=== PATIENT | female | born 1985 | race Caucasian/White ===

== ENCOUNTER 2020-06-21 15:16 | Emergency (ER) | payer OTHER, MEDICAID, SELFPAY ==
[2020-06-21 15:17] VITALS: BP 132/92; PULSE 93; RESP 16; TEMP 36.7; O2SAT 97; BMI 17.4
--- NOTE | 2020-06-21 15:37 | ED_ITS ---
HPI - Extremity Injury (Upper) <LAZARO Rossi - Last Filed: 06/21/20 15:59> General Chief Complaint: Extremity Injury, Upper Stated Complaint: LEFT ARM NUMBNESS Time Seen by Provider: 06/21/20 15:21 Source: patient and family Mode of arrival: Ambulatory Limitations: no limitations History of Present Illness HPI narrative: 35yo female with a history of asthma, EDS, narcolepsy, POTs, recently started taking any medication for sleep/nacolepsy called Xywav (calcium, mag, potassium, and sodium solution) presents to the emergency department complaining 1 episode of left arm tingling. She states she took Xywav this evening and when she woke up this morning she felt a slight tingling in her left arm. She was lying on her right side which she thought was odd. She states the numbness and tingling felt like pins and needles. She states that lasted a few minutes and resolved after she moves her arm. She also noticed that she was slightly short of breath, she has a history of asthma, she states it felt like chest tightness which happens on occasion when she has an increase in her asthma symptoms. She states this feels very similar. However, she has not filled her new inhaler levabluterol at this point. She has not taken albuterol because it makes her heart rate increased. She is able to walk around the room in from the car without any shortness of breath or distress. Patient denies any other symptoms such as fevers, chills, vomiting, diarrhea, chest pain, dizziness, abdominal pain, or any other concerns. Related Data Allergies Allergy/AdvReac Type Severity Reaction Status Date / Time ciprofloxacin [From Cipro] Allergy Verified 06/21/20 15:24 Penicillins Allergy Verified 06/21/20 15:24 Review of Systems <LAZARO Rossi - Last Filed: 06/21/20 15:59> Review of Systems Narrative: REVIEW OF SYSTEMS: GENERAL: Denies fever or chills. HENT: No head trauma. CARDIOVASCULAR: No chest pain or syncope. RESPIRATORY: No cough. Does report some chest tightness, see HPI. GASTROINTESTINAL: No nausea or vomiting. GENITOURINARY: No flank pain. MUSCULOSKELETAL: No pain. INTEGUMENTARY: No rash. NEURO: Reports 1 episode of numbness and tingling in left arm, see HPI. Patient History <LAZARO Rossi - Last Filed: 06/21/20 15:59> Medical History Asthma EDS (Cee-Danlos syndrome) Social History Smoking Status: Never smoker Smoking Status: Never smoker alcohol intake frequency: other Substance Use Type: does not use Exam <LAZARO Rossi - Last Filed: 06/21/20 15:59> Initial Vital Signs Initial Vital Signs: Vital Signs Temperature 98.1 F 06/21/20 15:17 Pulse Rate 93 H 06/21/20 15:17 Respiratory Rate 16 06/21/20 15:17 Blood Pressure 132/92 H 06/21/20 15:17 Pulse Oximetry 97 06/21/20 15:17 PHYSICAL EXAMINATION: GENERAL: Well groomed, alert, and cooperative. Answers questions promptly and appropriately. HENT: Normocephalic. Ear canals patent. Oral mucosa is pink and moist. EYES: PERRLA, EOMIs, conjunctiva pink, sclera white, no periorbital swelling. NECK: Full ROM, no midline or spinal tenderness. CARDIOVASCULAR: S1 and S2 sounds normal. Regular rate and rhythm, no murmurs, clicks, or bruits. RESPIRATORY: Normal respiratory rate, trachea midline, airway patent. No stridor, nasal flaring or accessory muscle use. Lungs are clear in all griffin without wheeze, rhonchi, or crackles. MUSCULOSKELETAL: Equal accounting support specialist, deltoid, and forearm strength bilaterally. Normal gait and coordination. Equal tone and mass bilaterally. Equal strength bilaterally to upper and lower extremities. No spinal tenderness. EXTREMITIES: CMS intact. Moves all extremities. SKIN: Warm, dry, soft, appropriate color for ethnicity. No lesions, rashes, or wounds to visualized areas. NEURO: Alert and Oriented X 3. GCS: 15. Good coordination. No ataxia, or sensory deficits, or cognitive issues. Cranial Nerves: II: Visual griffin grossly intact. III & IV & : EOMIs V: Able to open and close jaw. VII: Facial movements symetrical. Able to close eyelids tightly. VIII: Hearing grossly intact, adequate balance. X: Uvula pronation intact. XI: Patient is able to shrug shoulders. XII: Patient is able to stick out tongue and move it side to side. PSYCH: Appropriate affect and mood. <Dylon Marsh DO - Last Filed: 06/21/20 17:16> Initial Vital Signs Initial Vital Signs: Vital Signs Temperature 98.1 F 06/21/20 15:17 Pulse Rate 93 H 06/21/20 15:17 Respiratory Rate 16 06/21/20 15:17 Blood Pressure 132/92 H 06/21/20 15:17 Pulse Oximetry 97 06/21/20 15:17 Course <LAZRAO Rossi - Last Filed: 06/21/20 15:59> Orders Ordered: ED Orders 06/21/20 15:45 Complete Blood Count AUTO DIFF Stat Comprehensive Metabolic Panel Stat Vital Signs Vital signs: Vital Signs - 8 hr 06/21/20 15:17 06/21/20 17:08 Temperature 98.1 F Pulse Rate 93 H 89 Respiratory Rate 16 16 Blood Pressure 132/92 H 128/88 Pulse Oximetry 97 97 <Dylon Marsh DO - Last Filed: 06/21/20 17:16> Orders Ordered: ED Orders 06/21/20 15:45 Complete Blood Count AUTO DIFF Stat Comprehensive Metabolic Panel Stat Vital Signs Vital signs: Vital Signs - 8 hr 06/21/20 15:17 06/21/20 17:08 Temperature 98.1 F Pulse Rate 93 H 89 Respiratory Rate 16 16 Blood Pressure 132/92 H 128/88 Pulse Oximetry 97 97 MDM - Extremity Injury (Upper) <LAZARO Rossi - Last Filed: 06/21/20 15:59> Medical Records Attestation: I reviewed the patient's medical records. Lab Data Attestation: I reviewed the patient's lab results. Result diagrams: 06/21/20 15:45 06/21/20 15:45 Labs: Lab Results 06/21/20 06/21/20 Range/Units 15:45 15:45 WBC 10.2 (4.5-11.0) X10^3/uL RBC 4.81 (4.0-5.2) X10^6/uL Hgb 15.4 (12.0-16.0) g/dL Hct 44.9 (36-46) % MCV 93.5 (80-100) fL MCH 32.1 (26-34) PG MCHC 34.4 (30-36) % RDW 12.4 (11.6-14.8) % Plt Count 318 (150-400) X10^3/uL Neut % (Auto) 77.9 H (50-75) % Lymph % (Auto) 14.4 L (25-40) % [place] % (Auto) 7.1 (3-14) % Eos % (Auto) 0.4 L (2-4) % Baso % (Auto) 0.2 (0-2) % Neut # (Auto) 7900 H (7367-5594) /uL Lymph # (Auto) 1500 (8834-3159) /uL [place] # (Auto) 700 (0-900) /uL Eos # (Auto) 0 (0-450) /uL Baso # (Auto) 0 (0-100) /uL Sodium 138 (137-145) mmol/L Potassium 4.0 (3.4-5.1) mmol/L Chloride 103 (98-107) mmol/L Carbon Dioxide 30 (22-32) mmol/L BUN 11 (7-17) mg/dL Creatinine 0.73 (0.52-1.04) mg/dL Estimated GFR > 60.0 (>60) mL/min BUN/Creatinine Ratio 15.1 (6-22) Glucose 92 (70-100) mg/dL Calcium 9.9 (8.4-10.2) mg/dL Total Bilirubin 1.2 (0.2-1.3) mg/dL AST 39 H (14-36) IU/L ALT 28 (<35) IU/L Alkaline Phosphatase 72 (38-126) U/L Total Protein 8.3 H (6.3-8.2) g/dL Albumin 4.8 (3.5-5.0) g/dL Globulin 3.5 (1.7-4.1) g/dL Albumin/Globulin Ratio 1.4 (1.0-2.8) Point of Care Testing Test Results Negative Urine Dip Bedside Urine Glucose Negative Bedside Urine Bilirubin - Negative Bedside Urine Ketone - Negative Urine Specific [place] 1.010 Bedside Urine Occult Blood - Negative Bedside Urine pH 6.5 Bedside Urine Protein - Negative Bedside Urine Urobilinogen - Negative Bedside Urine Nitrite - Negative Bedside Urine Leukocytes - Negative Esterase MDM Narrative Medical decision making narrative: 35-year-old female presenting to the emergency department for an episode of left arm tingling and numbness. I am unsure the exact etiology but this may be due to position and given patient's symptoms improved with repositioning arm. However, given the fact that she is taking any medication, Xywav which involves electrolytes such as calcium, magnesium, potassium, and sodium). Less likely acute severe neurological etiology such as brain tumor due to lack of other concerning symptoms such as headaches or vision changes. Additionally, patient has a normal neuro examination. Less likely CVA given low risk factors, episode occurred once and resolved with position movement. Patient was signed out to Dr. Marsh for further work up and evaluation. <Dylon Marsh, DO - Last Filed: 06/21/20 17:16> Lab Data Labs: Lab Results 06/21/20 06/21/20 Range/Units 15:45 15:45 WBC 10.2 (4.5-11.0) X10^3/uL RBC 4.81 (4.0-5.2) X10^6/uL Hgb 15.4 (12.0-16.0) g/dL Hct 44.9 (36-46) % MCV 93.5 (80-100) fL MCH 32.1 (26-34) PG MCHC 34.4 (30-36) % RDW 12.4 (11.6-14.8) % Plt Count 318 (150-400) X10^3/uL Neut % (Auto) 77.9 H (50-75) % Lymph % (Auto) 14.4 L (25-40) % [place] % (Auto) 7.1 (3-14) % Eos % (Auto) 0.4 L (2-4) % Baso % (Auto) 0.2 (0-2) % Neut # (Auto) 7900 H (5381-0214) /uL Lymph # (Auto) 1500 (4696-1739) /uL [place] # (Auto) 700 (0-900) /uL Eos # (Auto) 0 (0-450) /uL Baso # (Auto) 0 (0-100) /uL Sodium 138 (137-145) mmol/L Potassium 4.0 (3.4-5.1) mmol/L Chloride 103 (98-107) mmol/L Carbon Dioxide 30 (22-32) mmol/L BUN 11 (7-17) mg/dL Creatinine 0.73 (0.52-1.04) mg/dL Estimated GFR > 60.0 (>60) mL/min BUN/Creatinine Ratio 15.1 (6-22) Glucose 92 (70-100) mg/dL Calcium 9.9 (8.4-10.2) mg/dL Total Bilirubin 1.2 (0.2-1.3) mg/dL AST 39 H (14-36) IU/L ALT 28 (<35) IU/L Alkaline Phosphatase 72 (38-126) U/L Total Protein 8.3 H (6.3-8.2) g/dL Albumin 4.8 (3.5-5.0) g/dL Globulin 3.5 (1.7-4.1) g/dL Albumin/Globulin Ratio 1.4 (1.0-2.8) Point of Care Testing Test Results Negative Urine Dip Bedside Urine Glucose Negative Bedside Urine Bilirubin - Negative Bedside Urine Ketone - Negative Urine Specific [place] 1.010 Bedside Urine Occult Blood - Negative Bedside Urine pH 6.5 Bedside Urine Protein - Negative Bedside Urine Urobilinogen - Negative Bedside Urine Nitrite - Negative Bedside Urine Leukocytes - Negative Esterase MDM Narrative Medical decision making narrative: Dr marsh: Received turned over, reviewed patient's history and physical. Performed my own independent evaluation. Patient's labs reviewed and are unremarkable. She is currently asymptomatic. Unsure the exact etiology of her symptoms however a field is unlikely CVA/TIA. This is not an electrolyte issue. She is not hypoglycemic. Unsure if it is related to this new medicine that she is taking for sleep however it did occur approximately 30 minutes after taking the medicine. She has been on this particular dose for the past several days and has not had an issue until this morning. Informed the patient that if she would like she could continue to take this medication however the symptoms return she needs to stop it and contact the prescribing provider. She expressed understanding and agreement. Discharge Plan Departure Patient Disposition: Home Clinical Impression: Arm paresthesia, left Instructions: DI for Numbness/Tingling Activity Restrictions/Additional Instructions: Your electrolytes here in the emergency department were unremarkable. You can take your medication like we discussed however if your symptoms return especially if they return in do not go way or worsen please return to the [facility] for further evaluation. Contact your primary provider for a follow-up
[2020-06-21 16:04] LABS: Alanine Aminotransferase 28 IU/L (<35); Albumin 4.8 g/dL (3.5-5.0); Albumin Globulin Ratio 1.4 (1.0-2.8); Alkaline Phosphatase 72 U/L (38-126); Aspartate Aminotransferase 39 IU/L (14-36); BUN Creatinine Ratio 15.1 (6-22); Bilirubin Total 1.2 mg/dL (0.2-1.3); Blood Urea Nitrogen 11 mg/dL (7-17); Calcium 9.9 mg/dL (8.4-10.2); Carbon Dioxide 30 mmol/L (22-32); Chloride 103 mmol/L (98-107); Estimated Glomerular Filt Rate > 60.0 mL/min (>60); Globulin 3.5 g/dL (1.7-4.1); Glucose 92 mg/dL (70-100); HEMOLYSIS < 15 (0-50); Sodium 138 mmol/L (137-145); Total Protein 8.3 g/dL (6.3-8.2)
[2020-06-21 16:06] LABS: Add Manual Diff / Slide Review NO; Basophils Absolute Auto 0 /uL (0-100); Basophils Percent Auto 0.2 % (0-2); Eosinophils Absolute Auto 0 /uL (0-450); Eosinophils Percent Auto 0.4 % (2-4); Hematocrit 44.9 % (36-46); Hemoglobin 15.4 g/dL (12.0-16.0); Lymphocytes Absolute Auto 1500 /uL (1100-4500); Lymphocytes Percent Auto 14.4 % (25-40); Mean Corpuscular HGB Conc 34.4 % (30-36); Mean Corpuscular Hemoglobin 32.1 PG (26-34); Mean Corpuscular Volume 93.5 fL (80-100); Monocytes Absolute Auto 700 /uL (0-900); Monocytes Percent Auto 7.1 % (3-14); Neutrophils Absolute Auto 7900 /uL (1500-7000); Neutrophils Percent Auto 77.9 % (50-75); Platelet Count 318 X10^3/uL (150-400); Red Blood Cell Count 4.81 X10^6/uL (4.0-5.2); Red Cell Distribution Width 12.4 % (11.6-14.8); White Blood Cell Count 10.2 X10^3/uL (4.5-11.0)
[2020-06-21 17:08] VITALS: BP 128/88; PULSE 89; RESP 16; O2SAT 97
== END 2020-06-21 17:09 | disposition home or self-care (01) ==
PROVIDERS: Nurse Practitioner; Emergency Provider Emergency Medicine
DX: R20.2 Paresthesia of skin (principal); R06.02 Shortness of breath; G47.419 Narcolepsy without cataplexy
CPT/HCPCS: 80053; 81003; 81025; 85025; 99281; 99283